=== PATIENT | male | born 1945 | race Caucasian/White ===

== ENCOUNTER 2017-11-10 08:53 | Emergency (ER) | payer OTHER, MEDICARE ==
[2017-11-10 09:04] VITALS: BP 191/91
[2017-11-10] MEDS ORDERED: LIDOCAINE 2% URO-JET 5 ML SYRINGE UR STA (09:11)
--- NOTE | 2017-11-10 09:14 | ED Physician Documentation ---
PD HPI MALE - Stated complaint Stated Complaint: MALE - Chief complaint Chief Complaint: General - History obtained from History obtained from: Patient - History of Present Illness Timing - onset: Enter time (299), Today Timing - duration: Hours Timing - details: Gradual onset, Still present Associated symptoms: Unable to urinate, Hematuria Similar symptoms before: No diagnosis Recently seen: Not recently seen - Additional information Additional information: 72-year-old male was previously well and voided up proximally 3 AM this morning with some blood in the urine. He has had this happen to him once or twice a month and usually hydrates and this resolves. This morning at 6 AM he was unable to void and now at 9 AM he is in pain a lot of suprapubic pain with any movement. Review of Systems Constitutional: denies: Fever Eyes: denies: Decreased vision Ears: denies: Ear pain Nose: denies: Congestion Throat: denies: Sore throat Cardiac: denies: Chest pain / pressure Respiratory: denies: Cough GI: reports: Abdominal Pain, Abdominal Swelling. denies: Nausea, Vomiting, Constipation, Diarrhea : reports: Frequency, Unable to Void, Hematuria. denies: Dysuria Skin: denies: Rash Musculoskeletal: denies: Neck pain, Back pain, Extremity pain PD PAST MEDICAL HISTORY - Past Medical History Past Medical History: No - Past Surgical History Past Surgical History: No - Present Medications Home Medications: Ambulatory Orders Medication Instructions Recorded Confirmed Tamsulosin [Flomax] 0.4 mg PO DAILY #20 capsule 11/10/17 - Allergies Allergies/Adverse Reactions: Allergies Allergy/AdvReac Type Severity Reaction Status Date / Time No Known Drug Allergies Allergy Verified 11/10/17 09:00 - Social History Does the pt smoke?: Yes Smoking Status: Current every day smoker PD ED PE NORMAL - Vitals Vital signs reviewed: Yes (hypertension) - General General: Alert and oriented X 3, No acute distress, Well developed/nourished - HEENT HEENT: Atraumatic, PERRL, EOMI - Neck Neck: Supple, no meningeal sign - Respiratory Respiratory: No respiratory distress - Abdomen Abdomen: Other (There is lower abdominal distention and tenderness with a full bladder on bedside exam seen. ) - Back Back: No CVA TTP, No spinal TTP - Derm Derm: Normal color, Warm and dry, No rash - Extremities Extremities: No deformity, No edema - Neuro Neuro: No motor deficit, No sensory deficit Eye Opening: Spontaneous Motor: Obeys Commands Verbal: Oriented GCS Score: 15 - Psych Psych: Normal mood, Normal affect Results - Vitals Vitals: Vital Signs - 24 hr 11/10/17 08:57 Temperature 35.9 C L Heart Rate 79 Respiratory 18 Rate Blood Pressure 191/91 H O2 Saturation 99 Oxygen O2 Source Room air - Labs Labs: Laboratory Tests 11/10/17 09:25 Urine Color BROWN Urine Clarity SL. CLOUDY Urine pH 6.[address] 1.025 Urine Protein >=300 Urine Glucose (UA) NEGATIVE Urine Ketones NEGATIVE Urine Occult Blood LARGE H Urine Nitrite NEGATIVE Urine Bilirubin NEGATIVE Urine Urobilinogen 0.2 (NORMAL) Ur Leukocyte Esterase NEGATIVE Urine RBC TNTC H Urine WBC 0-3 Ur Squamous Epith Cells RARE Squamous Urine Bacteria Few Ur Microscopic Review INDICATED Urine Culture Comments NOT INDICATED PD MEDICAL DECISION MAKING - ED course Complexity details: reviewed old records, reviewed results, re-evaluated patient , considered differential, d/w patient ED course: 9-year-old male with acute urinary retention has relief of his pain with insertion of Crow catheter. There is no evidence of infection on evaluation of the urine he does have hematuria. He has a history consistent with benign prostatic hypertrophy with a diminished stream over the last several years. He has not been into see the urologist. Here in the emergency department a Crow catheter is placed with relief of his symptoms and drainage of more than 400 mL' s of urine. He is given Flomax orally in the emergency department and he will follow-up at the [facility]. Departure - Departure Disposition: 01 Home, Self Care Clinical Impression: Urinary retention Condition: Stable Instructions: ED Retention Urinary Male Follow-Up: Your, doctor at the [facility] [Other] Prescriptions: Tamsulosin [Flomax] 0.4 mg PO DAILY #20 capsule Comments: Today it appears you have acute urinary retention and this is been relieved by the placement of a Crow catheter. You will need to have the Crow catheter in place for about a week and you should follow-up with a urologist at the [facility] for a voiding trial next week. In the meantime start taking the Flomax on a regular basis.
[2017-11-10] MEDS ORDERED: TAMSULOSIN 0.4 MG CAPSULE PO STA (09:20)
[2017-11-10 09:42] LABS: PH,URINE 6.5 PH (5.0-7.5)
[2017-11-10 09:46] LABS: BILIRUBIN,URINE NEGATIVE (NEGATIVE); UA w/ MICROSCOPIC CHARGE YES
[2017-11-10 09:47] LABS: UR CULTURE IF IND NOT INDICATED; WBC,URINE 0-3 /HPF (0-3)
== END 2017-11-10 10:48 | disposition home or self-care (01) ==
LOC: ED 08:53
DX: R33.9 Retention of urine, unspecified (principal); F17.200 Nicotine dependence, unspecified, uncomplicated
CPT/HCPCS: 51702; 81001; 81003; 87086; 99283

== ENCOUNTER 2017-11-10 13:42 | Emergency (ER) | payer OTHER, MEDICARE ==
--- NOTE | 2017-11-10 14:21 | ED Physician Documentation ---
PD HPI MALE - Stated complaint Stated Complaint: MALE /CATHETER - Chief complaint Chief Complaint: General - History obtained from History obtained from: Patient - History of Present Illness Timing - onset: Today Timing - details: Gradual onset (he had trejo placed earlier today for retention and it is not draining now.) Associated symptoms: Unable to urinate, Trejo problem Recently seen: Emergency Dept (today) Review of Systems Constitutional: denies: Fever, Chills GI: denies: Nausea, Vomiting PD PAST MEDICAL HISTORY - Past Medical History Cardiovascular: None Respiratory: None - Past Surgical History Past Surgical History: No - Present Medications Home Medications: Ambulatory Orders Medication Instructions Recorded Confirmed Tamsulosin [Flomax] 0.4 mg PO DAILY #20 capsule 11/10/17 11/11/17 - Allergies Allergies/Adverse Reactions: Allergies Allergy/AdvReac Type Severity Reaction Status Date / Time No Known Drug Allergies Allergy Verified 11/11/17 13:16 - Social History Does the pt smoke?: Yes Smoking Status: Current every day smoker PD ED PE NORMAL - Vitals Vital signs reviewed: Yes - General General: Alert and oriented X 3, No acute distress, Well developed/nourished - Abdomen Abdomen: Normal bowel sounds, Soft, Non distended, Other (mild tender suprapubic ) - Male Male : Other (normal genitalia with trejo in place. ) Results - Vitals Vitals: Oxygen O2 Source Room air PD MEDICAL DECISION MAKING - ED course Complexity details: considered differential (catheter was blocked with some clots and worked well with irrigation. ), d/w patient Departure - Departure Disposition: 01 Home, Self Care Clinical Impression: Urinary retention Trejo catheter problem Qualifiers: Encounter type: initial encounter Qualified Code(s): T83.9XXA - Unspecified complication of genitourinary prosthetic device, implant and graft, initial encounter Condition: Stable Record reviewed to determine appropriate education?: Yes Instructions: ED Catheter Care Trejo Comments: You can irrigate the catheter at home if it seems to get clogged. It may be reasonable to just irrigated 3 or 4 times a day for the next couple of days to disrupt clots. Follow-up as planned with prior instructions. Discharge Date/Time: 11/10/17 14:51
[2017-11-10 14:52] VITALS: BP 140/90
== END 2017-11-10 14:51 | disposition home or self-care (01) ==
LOC: ED 13:42
DX: T83.098A Other mechanical complication of other urinary catheter, initial encounter (principal); R33.9 Retention of urine, unspecified; F17.200 Nicotine dependence, unspecified, uncomplicated
CPT/HCPCS: 51702; 81001; 99283; A9270; 81003; 87086

== ENCOUNTER 2017-11-11 12:58 | Emergency (ER) | payer MEDICARE, OTHER ==
--- NOTE | 2017-11-11 13:39 | ED Physician Documentation ---
History of Present Illness - Stated complaint Stated Complaint: MALE /CATH - Chief complaint Chief Complaint: General - History obtained from History obtained from: Patient - History of Present Illness Timing: Yesterday Pain level max: 3 Pain level now: 3 Improved by: irrigating the catheter Worsened by: nothing - Additonal information Additional information: Patient is a 72-year-old male who presents to the emergency department after being seen here twice recently for hematuria with clots that make him unable to urinate. A Crow catheter was placed in the emergency department, but seems to have clogged again today. States the urine is draining around the catheter. Has no fevers. He is supposed to follow-up with the urologist at the [facility]. Review of Systems Constitutional: denies: Fever, Chills Ears: denies: Ear pain Nose: denies: Rhinorrhea / runny nose, Congestion Respiratory: denies: Cough Skin: denies: Rash Musculoskeletal: denies: Neck pain, Back pain Neurologic: denies: Generalized weakness, Syncope PD PAST MEDICAL HISTORY - Past Medical History Past Medical History: Yes - Past Surgical History Past Surgical History: No - Present Medications Home Medications: Ambulatory Orders Medication Instructions Recorded Confirmed Tamsulosin [Flomax] 0.4 mg PO DAILY #20 capsule 11/10/17 11/11/17 - Allergies Allergies/Adverse Reactions: Allergies Allergy/AdvReac Type Severity Reaction Status Date / Time No Known Drug Allergies Allergy Verified 11/11/17 13:16 - Living Situation Living Arrangement: reports: At home - Social History Does the pt smoke?: Yes Smoking Status: Current every day smoker Does the pt have substance abuse?: No PD ED PE NORMAL - Vitals Vital signs reviewed: Yes - General General: Alert and oriented X 3, No acute distress - Neck Neck: Supple, no meningeal sign - Cardiac Cardiac: RRR - Respiratory Respiratory: No respiratory distress, Clear bilaterally - Abdomen Abdomen: Soft, Non tender, Non distended - Male Male : Other (normal external exam, draining urine around the catheter) - Derm Derm: Warm and dry - Neuro Neuro: Alert and oriented X 3 Results - Vitals Vitals: Vital Signs - 24 hr 11/11/17 11/11/17 11/11/17 13:10 14:02 14:22 Temperature 98.0 C H Heart Rate 102 H 82 78 Respiratory 16 18 16 Rate Blood Pressure 170/97 H 138/80 H 134/78 H O2 Saturation 96 96 97 Oxygen O2 Source Room air PD MEDICAL DECISION MAKING - ED course Complexity details: reviewed results, re-evaluated patient, considered differential, d/w patient, d/w family ED course: Crow catheter was replaced with a larger size. Draining well. No further clots. It was also irrigated. We will have him follow-up with urology. Patient counseled regarding signs and symptoms for which I believe and urgent re -evaluation would be necessary. Patient with good understanding of and agreement to plan and is comfortable going home at this time This document was made in part using voice recognition software. While efforts are made to proofread this document, sound alike and grammatical errors may occur. Departure - Departure Disposition: 01 Home, Self Care Clinical Impression: Crow catheter problem Qualifiers: Encounter type: initial encounter Qualified Code(s): T83.9XXA - Unspecified complication of genitourinary prosthetic device, implant and graft, initial encounter Hematuria Qualifiers: Hematuria type: gross Qualified Code(s): R31.0 - Gross hematuria Condition: Good Instructions: ED Catheter Care Crow Follow-Up: your,doctor in 3 days [Other] Comments: Return if you worsen. Follow up with urology as scheduled Discharge Date/Time: 11/11/17 14:46
[2017-11-11] MEDS ORDERED: LIDOCAINE 2% URO-JET 5 ML SYRINGE UR STA (13:43)
[2017-11-11 14:22] VITALS: BP 134/78
== END 2017-11-11 14:46 | disposition home or self-care (01) ==
LOC: ED 12:58
DX: T83.098A Other mechanical complication of other urinary catheter, initial encounter (principal); R31.0 Gross hematuria; F17.200 Nicotine dependence, unspecified, uncomplicated
CPT/HCPCS: 51702; 99282; 99283